=== PATIENT | male | born 1975 | race Caucasian/White ===

== ENCOUNTER → 2021-10-30 | Outpatient (CLI) | payer MEDICARE, OTHER ==
--- NOTE | 2021-10-30 15:58 | XR ---
EXAMINATION TYPE: XR abdomen 2V DATE OF EXAM: 10/30/2021 COMPARISON: None INDICATION: Hernia TECHNIQUE: 2 view abdomen supine and upright views FINDINGS: Normal colonic bowel gas present. Some nonspecific small bowel gas within the mid abdomen. No suspici ous air-fluid levels or differential air-fluid levels are evident. No mass effect is evident. Psoas margins are normal. No organomegaly is present. IMPRESSION: 1. Unspecific bowel gas pattern.
--- NOTE | 2021-10-30 16:27 | US ---
EXAMINATION TYPE: US kidneys/renal and bladder DATE OF EXAM: 10/30/2021 COMPARISON: NONE CLINICAL HISTORY: R79.9 Abnormal finding of blood chemistry, K42.9. Abnormal labs EXAM MEASUREMENTS: Right Kidney: 9.2 x 4.2 x 5.2 cm Left Kidney: 8.8 x 4.9 x 4.8 cm Right Kidney: Small amount of hydronephrosis bladder is extremely full. Left Kidney: Simple appearing Cystic area mid pole 4.4 x 3.6 x 4.4 cm. Bladder: Anechoic Bilateral Jets seen: no No nephrolithiasis is seen. No masses are identified. The urinary bladder is anechoic. IMPRESSION: 1. Mild right hydronephrosis. 2. Left renal cyst
== END | disposition home or self-care (01) ==
LOC: RADUSWWP 14:43
PROVIDERS: ATTEND Internal Medicine
DX: N13.30 Unspecified hydronephrosis (principal); K42.9 Umbilical hernia without obstruction or gangrene; N28.1 Cyst of kidney, acquired; R79.9 Abnormal finding of blood chemistry, unspecified
CPT/HCPCS: 74019; 76770

== ENCOUNTER → 2022-02-16 | Outpatient (CLI) | payer MEDICARE, OTHER ==
--- NOTE | 2022-02-16 15:42 | CT ---
EXAMINATION TYPE: CT abdomen pelvis wo con DATE OF EXAM: 02/16/2022 HISTORY: hydronephrosis X [address] DLP: 264.40 mGycm. Automated Exposure Control for Dose Reduction was Utilized. TECHNIQUE: CT scan of the abdomen and pelvis is performed without oral or IV contrast. COMPARISON: Abdominal x-ray and renal ultrasound October 30, 2021 FINDINGS: Within the limitations of a non-contrast study, the following observations are made. LUNG BASES: Small inferior pericardial effusion. LIVER/GB: No significant abnormality is appreciated. PANCREAS: No significant abnormality is seen. SPLEEN: No significant abnormality is seen. ADRENALS: No significant abnormality is seen. KIDNEYS: Mild fullness to right renal pelvis without calyceal dilatation is less prominent than prior ultrasound. No definitive right-sided renal calculi. Possible 2 adjacent tiny left renal calculi upp er pole level axial image 36 measuring near 2 mm. There is 4.4 cm simple appearing thin-walled cyst i n the left kidney laterally upper to mid pole level axial image 37 corresponding to ultrasound image 33. No left-sided hydronephrosis. No intraluminal calculi in the urinary bladder. Single left-sided p elvic phlebolith on axial image 126 noted. BOWEL: No significant abnormality is seen. GENITAL ORGANS: Slightly bulky bilateral seminal vesicles. Prostate gland is thought normal in size. LYMPH NODES: No greater than 1cm abdominal or pelvic lymph nodes are appreciated. OSSEOUS STRUCTURES: Slight dextroconvexed scoliotic curvature centered at L3 level. Spine is straight ened on sagittal images. OTHER: Moderate-sized umbilical hernia containing fat on axial image 77 noted. Just superior to this there is a ventral wall hernia containing fat and tiny mesenteric vessels and coronal image 11 noted. IMPRESSION: Improved likely resolved right-sided hydronephrosis. No left-sided hydronephrosis. Probab le 2 tiny nonobstructing upper pole adjacent renal calculi.
== END | disposition home or self-care (01) ==
LOC: RADCTMAIN 15:07
PROVIDERS: ATTEND Urology
DX: N13.30 Unspecified hydronephrosis (principal)
CPT/HCPCS: 74176